=== PATIENT | male | born 1955 | race Caucasian/White ===

== ENCOUNTER → 2017-07-16 | Outpatient (CLI) | payer MEDICARE ==
[~2017-07-16] MED LIST: AEROCHAMBER1 DEV IH; ALBUTEROL2.5 MG/NEB IN; ALBUTEROL200 PUFFS/ IH; AMITRIPTYLINE 550 MG PO; AMLODIPINE5 M1 PO; ASPIRIN ADULT L81 M2 PO; AUGMENTIN 875 M1 TAB PO; AZITHROMYCIN250 MG PO; BIAXIN500 MG PO; CHEWABLE ASPIRI81 MG; CIPRO 500MG TA500 MG PO; COUMADIN 5MG TAB5 MG PO; COUMADIN3 MG PO; COUMADIN7.5 MG PO; GABAPENTIN 600600 MG PO; KEFLEX 500MG.500 MG PO; LASIX20 MG PO; LASIX40 MG PO; LEVOTHYROXINE0.1 MG PO; LISINOPRIL10 MG PO; LYRICA150 MG PO; MEDROL 4MG. DOSE4 MG PO; METOCLOPRAMIDE H5 MG PO; METOLAZONE 2.52.5 MG; METOLAZONE 2.52.5 MG PO; MORPHINE SULFAT60 MG; MORPHINE SULFAT60 MG PO; MULTAQ400 M1 PO; NOVOLIN 70/30 710 ML SC; OMEPRAZOLE40 MG PO; PHENERGAN 25MG.25 M1 PO; PLAVIX 75MG TAB75 MG PO; POTASSIUM CHLO20 ME2 PO; PREDNISONE 20MG20 MG PO; PSEUDOEPHEDRINE60 MG PO; SPIRIVA HA1 PUFF/INH IH; STERAPRED DS10 MG PO; SYMBICORT1 AER IH; SYNTHROID0.175 MG PO; TRAMADOL 50MG T50 M1 PO; VENTOLIN H0.09 MG/Ac; VISTARIL25 MG PO; ZITHROMAX Z PA250 MG PO; ZOFRAN4 MG PO; [UNRECOGNIZED DRUG - OTHER] PO
--- NOTE | 2017-07-16 15:25 | RADIOLOGY REPORT PS360 ---
ARTERIAL/COK-AGIYSHEDREP-WPZ RT LEG CLAUDICATION, nonhealing ulcer, leg pain and skin changes ORDERING PHYSICIAN: ANNIA HOLDEN DPM PATIENT AGE: 61 years TECHNIQUE: Segmental pressures obtained of both right and left leg. These are compared to brachial blood pressure to yield index at each level sampled including summary MAURI. The data sheets from the procedure are available in PACS FINDINGS Rest study only performed today No prior studies available for comparison. Blood pressures reported are in millimeters mercury. RIGHT LEG MAURI = 0.8. Brachial BP: 183 Thigh BP: 161 Calf BP: 151 Ankle PT: 147 Ankle DP : 122 Digit =99 LEFT LEG MAURI = 0.9 Brachial BPD: 167 Thigh BP: 164 Calf BP: 156 Ankle PT:157 Ankle DP: 147 Digit = 120 The right toe brachial index is 0.54 The left toe brachial index is 0.66 Pulses and waveforms: Normal IMPRESSION: 1. Slightly low right MAURI at 0.8 and slightly low toe brachial index of 0.6 indicating mild arterial disease. 2. Within normal limits left MAURI was slightly low left toe brachial index indicate mild small vessel disease
== END ==
LOC: RT 13:44
DX: L97.211 Non-pressure chronic ulcer of right calf limited to breakdown of skin (principal); M79.661 Pain in right lower leg

== ENCOUNTER → 2017-07-21 | Outpatient (CLI) | payer MEDICARE | LOC: RT 08:56 | DX: J44.1 Chronic obstructive pulmonary disease with (acute) exacerbation (principal) ==

== ENCOUNTER → 2017-08-07 | Outpatient (CLI) | payer MEDICARE ==
[2017-08-07 08:16] LABS: HEMOGLOBIN 13.4 g/dL (14.1-18.0); LYMPH % 17.2 % (10-50)
[2017-08-07 08:27] LABS: BUN 23 mg/dL (7-18)
[2017-08-07 08:32] LABS: GFR (ESTIMATED) 23 ML/MIN (>60)
[2017-08-07 09:02] VITALS: BP 162/86
--- NOTE | 2017-08-07 09:34 | CARDIOVASCULAR REPORT ---
"Venous Exam Indications: 729.81 Swelling of limb. 782.3 Edema. IMPRESSIONS 1. There is no evidence of significant Reflux. 2. No evidence of deep or superficial vein thrombosis involving the left lower extremity 3. No evidence of deep or superficial vein thrombosis involving the right lower extremity History: Swelling of both lower extremities. Risk factors: Hypertension.DM,COPD,CAD, Complete lower extremity venous duplex evaluation. Doppler flow study including spectral analysis, color and doan scale imaging. Tables: Venous flow and imaging: + + + + |Location |Overall |Flow properties | + + + + |Right common femoral |Patent |Normal phasicity; | | | |spontaneous; normal | | | |augmentation; compressible | + + + + |Right saphenofemoral |Patent |Compressible | |junction | | | + + + + |Right profunda femoral |Patent |Compressible | + + + + |Right femoral |Patent |Normal phasicity; | | | |spontaneous; normal | | | |augmentation; compressible;| | | |no reflux | + + + + |Right greater saphenous |Patent |Normal phasicity; | | | |spontaneous; normal | | | |augmentation; compressible | + + + + |Right popliteal |Patent |Normal phasicity; | | | |spontaneous; normal | | | |augmentation; compressible | + + + + |Right posterior tibial |Patent |Compressible | + + + + |Right peroneal |Difficult | | | |study | | + + + + |Right gastrocnemius |Patent |Compressible | + + + + |Right soleal |Patent |Compressible | + + + + |Left common femoral |Patent |Normal phasicity; | | | |spontaneous; normal | | | |augmentation; compressible | + + + + |Left saphenofemoral junction|Patent |Compressible | + + + + |Left profunda femoral |Patent |Compressible | + + + + |Left femoral |Patent |Normal phasicity; | | | |spontaneous; normal | | | |augmentation; compressible | + + + + |Left greater saphenous |Patent |Normal phasicity; | | | |spontaneous; normal | | | |augmentation; compressible | + + + + |Left popliteal |Patent |Normal phasicity; | | | |spontaneous; normal | | | |augmentation; compressible | + + + + |Left posterior tibial |Patent |Compressible | + + + + |Left peroneal |Difficult | | | |study | | + + + + |Left gastrocnemius |Patent |Compressible | + + + + |Left soleal |Patent |Compressible | + + + + (Report amended ) Electronically signed by: Brayan Garcia [id number]"
--- NOTE | 2017-08-07 13:19 | RADIOLOGY REPORT PS360 ---
PROCEDURE: 2-D M-mode and color Doppler study INDICATIONS FOR THE TEST: Chest pain X COPDX Heart Murmur Tobacco SmokingX Palpitations Fatigue Syncope EdemaX Hypertension Diabetes MellitusX Rheumatic Fever SOBXDOEXObesityXHyperlipidemiaX Family History HD Additional History CAD PATIENT INFORMATION HEIGHT: 75 WEIGHT:300 GENDER: Male B/P:140/80 2-D/M-MODE INTERPRETATION: 2-D MEASUREMENTS OBSERVED VALUES IN CMS Right Ventricular Dimension (RVDd) 3.4 Interventricular Septum (Thickness)(IVsd) 1.0 Left Ventricular Internal Dimensions(LVIDd) 5.9 Left Ventricular Posterior Wall (Thickness)(LVPWd) 1.0 Aortic Root 4.4 Aortic Cusp Separation 2.7 Left Atrial Dimensions (LAD) 3.6 2D 1. Technically difficult study because of the patient's factor and poor acoustic windows 2. The left atrium is mildly enlarged, left ventricle is normal size, there is no concentric left ventricular hypertrophy, visually estimated ejection fraction 55% with no obvious regional wall motion abnormality, endocardial surface of poorly visualized. 3. The right atrium is normal size, right ventricle is mildly enlarged with normal contractility. 4. The aortic valve is minimally thickened and fibrosed. 5. The mitral and tricuspid valvular grossly normal. 6. Pulmonic valve is poorly visualized. 7. No significant pericardial effusion noted. DOPPLER INTERROGATION: Doppler interrogation of the aortic, mitral and tricuspid valvular presence of mild mitral and tricuspid regurgitation, tricuspid and jet velocity is insufficient for calculation of the right ventricular systolic pressure. Diastolic parameters are inconclusive. CONCLUSION: 1. Mildly left atrium, normal left ventricular size, visually estimated ejection fraction 55% with no obvious regional wall motion abnormality, endocardial surface of poorly visualized. Diastolic parameters are inconclusive. 2. Mild mitral and tricuspid regurgitation. 3. No significant pericardial effusion noted.
[2017-08-07 14:08] LABS: BILIRUBIN, INDIRECT 0.15 mg/dL (0-0.9)
== END ==
LOC: CATHLAB 07:30 → RT 14:30
PROVIDERS: Internal Medicine
DX: I73.9 Peripheral vascular disease, unspecified (principal); R60.0 Localized edema; I25.10 Atherosclerotic heart disease of native coronary artery without angina pectoris; I25.2 Old myocardial infarction; E11.9 Type 2 diabetes mellitus without complications; I10 Essential (primary) hypertension; E78.5 Hyperlipidemia, unspecified; I20.8 Other forms of angina pectoris; J44.9 Chronic obstructive pulmonary disease, unspecified; Z72.0 Tobacco use; M79.661 Pain in right lower leg; M79.662 Pain in left lower leg

== ENCOUNTER → 2017-08-08 | Outpatient (CLI) | payer MEDICARE ==
[2017-08-08 17:15] LABS: BUN 19 mg/dL (7-18)
[2017-08-08 17:16] LABS: GFR (ESTIMATED) 26 ML/MIN (>60)
== END ==
LOC: LAB 16:12
PROVIDERS: Internal Medicine
DX: Z98.61 Coronary angioplasty status (principal); N18.9 Chronic kidney disease, unspecified

== ENCOUNTER → 2017-08-12 | Day surgery (SDC) | payer MEDICARE ==
[2017-08-12 08:06] LABS: HEMOGLOBIN 13.8 g/dL (14.1-18.0); LYMPH # 1.6 K/mm3 (0.7-4.5); LYMPH % 11.5 % (10-50)
[2017-08-12 08:12] LABS: BUN 13 mg/dL (7-18)
[2017-08-12 08:14] LABS: GFR (ESTIMATED) 29 ML/MIN (>60)
--- NOTE | 2017-08-12 12:13 | RADIOLOGY REPORT PS360 ---
PROCEDURE: 1. Left heart catheterization 2. Left ventriculogram 3. Selective coronary angiographic 4. Bilateral selective renal angiography 5. Catheter placement in the right superficial femoral artery 6. Right superficial femoral artery runoff to the ankle INDICATION: 1. Peripheral artery disease 2. Claudication [place] class III 3. Chronic renal failure creatinine 2.5-2.8 4. Renovascular hypertension 5. Diabetes 6. Angina pectoris class III and IV Known coronary artery disease with acceleration of angina Informed consent was obtained prior to the procedure. COMPLICATIONS: None ESTIMATED BLOOD LOSS: Blood loss less than 10 cc. TECHNIQUE:1% lidocaine used to anesthetize the left femoral groin. The left femoral artery was accessed via the Seldinger technique. A 5 [place] sheath was placed in the left femoral artery and a JL 4 JR4 catheter were used to perform left heart catheterization left ventriculogram and selective coronary angiography. The JR4 catheter was used to selectively intubate each renal artery. Following this the catheter was placed in the distal abdominal aorta and into the right common iliac artery where an advantage wire was used to cannulate the right superficial femoral artery under fluoroscopic guidance. The JR4 catheter was then advanced into the proximal SFA and unilateral runoff was performed. At the end of the procedure the apparatus was removed the patient was transferred to the postop holding area in stable condition for sheath removal ANGIOGRAPHIC RESULTS: Left main artery is normal Left anterior descending artery has mild proximal and mid vessel stenoses nothing greater than 20% Circumflex artery is nondominant and has mild Right coronary artery is dominant and has a stent in the ostial proximal segment which is widely patent free of in-stent restenosis with a mid vessel 30-40% nonflow limiting stenosis The GARCIA ventriculogram reveals normal ejection fraction estimated at 60% The left ventricular end-diastolic pressure is 10 mmHg Right renal artery singular and normal Left renal artery singular and normal The right superficial femoral artery right popliteal artery are angiographically normal with normal three-vessel runoff below the ankle Impression: Patent coronary arteries as described above Normal ejection fraction Normal left ventricular end-diastolic pressure Normal renal arteries bilaterally Normal unilateral runoff from the right superficial femoral artery to the ankle with probable +2 femoral pulses bilaterally Plan: Medical management Risk factor modification LDL less than 55 Evaluation of nonvascular claudication
[2017-08-12 12:26] VITALS: BP 132/88
== END ==
LOC: CATHLAB 07:35
PROVIDERS: Internal Medicine
PROC: B2111ZZ Fluoroscopy of Multiple Coronary Arteries using Low Osmolar Contrast (ICD-10-PCS; 2017-08-12)
PROC: B2151ZZ Fluoroscopy of Left Heart using Low Osmolar Contrast (ICD-10-PCS; 2017-08-12)
PROC: B4181ZZ Fluoroscopy of Bilateral Renal Arteries using Low Osmolar Contrast (ICD-10-PCS; 2017-08-12)
PROC: B41F1ZZ Fluoroscopy of Right Lower Extremity Arteries using Low Osmolar Contrast (ICD-10-PCS; 2017-08-12)
PROC: 4A023N7 Measurement of Cardiac Sampling and Pressure, Left Heart, Percutaneous Approach (ICD-10-PCS; principal; 2017-08-12 08:30)
DX: I25.119 Atherosclerotic heart disease of native coronary artery with unspecified angina pectoris (principal); I12.9 Hypertensive chronic kidney disease with stage 1 through stage 4 chronic kidney disease, or unspecified chronic kidney disease; N18.9 Chronic kidney disease, unspecified; I73.9 Peripheral vascular disease, unspecified; E11.8 Type 2 diabetes mellitus with unspecified complications
CPT/HCPCS: C1725; C1769; C1894; J1644; Q9966